=== PATIENT | female | born 1990 | race Caucasian/White ===

== ENCOUNTER 2024-06-25 21:16 | Emergency (ER) | payer OTHER, SELFPAY ==
[2024-06-25 21:17] VITALS: BP 172/127; PULSE 107; RESP 20; TEMP 36.3; O2SAT 100; BMI 44.7
--- NOTE | 2024-06-25 21:30 | CT_ITS ---
PROCEDURE: ABDOMEN/PELVIS WITHOUT CONT 06/25/2024 REASON FOR EXAM: KIDNEY STONE TECHNIQUE: Abdomen and pelvis CT without intravenous contrast. Noncontrast technique limits evaluation of the abdominal and pelvic viscera. Coronal and Sagittal reconstruction series were provided. One or more dose reduction techniques were used (e.g., Automated exposure control, adjustment of the mA and/or kV according to patient size, use of iterative reconstruction technique). COMPARISON: None FINDINGS: Lower chest: Unremarkable. Liver: Hepatic steatosis is present. Biliary/gallbladder: Unremarkable. Pancreas: Unremarkable. Spleen: Unremarkable. Adrenal glands: Unremarkable. Kidneys: Moderate right hydroureteronephrosis with an 8.8 mm calculus at the ureterovesicular junction. Gastrointestinal/peritoneum: No acute abnormality.The appendix is unremarkable.No free air or free fluid. Vascular: Mild scattered atherosclerotic calcifications are present. Lymph nodes: No enlarged lymph nodes by CT size criteria. Pelvic organs: The uterus appears to be scarred to the anterior abdominal wall, likely due to adhesions from prior section. Bladder: Unremarkable. Bones: Unremarkable. Soft tissues: Unremarkable. CT/Abdomen/Pelvis without Cont IMPRESSION: 1. Moderate right obstructive uropathy due to an 8.8 mm calculus at the uretero vesicular junction. 2. Hepatic steatosis. 3. Uterine adhesion likely due to prior section Reading Location: [facility]
[2024-06-25 21:44] LABS: Bacteria 0 SEEN /hpf (None Seen); Mucous, Urine 0 SEEN /hpf (<or=2+); Squamous Epithelial Cells - UA 0 SEEN /hpf (5-10)
--- NOTE | 2024-06-25 21:56 | EX.ED.DYSGE1 ---
HPI History of Present Illness Chief Complaint: Flank Pain Informant: patient Narrative Narrative: Worsening right flank pain radiating to the groin 6 [address] Urine urgency. Denies dysuria denies fevers denies nausea or vomiting. A month ago had similar symptoms went to urgent care negative urine symptoms resolved since then. No diagnosed history of kidney stones. Finished her menstrual period yesterday. Allergies to codeine. No history of gastric ulcers or kidney injury. Prior similar symptoms: Yes PFSH PFSH Medical History (Updated 06/25/24 @ 23:[address] Gary Belcher DO) Preeclampsia Home Medications ?Medication ?Instructions ?Recorded ?Last Taken ?Type hydrocodone-acetaminophen 5-325mg 1 tab PO Q6H PRN PRN Pain 3 days 06/25/24 Unknown Rx 5mg-325mg #12 TABLETS ibuprofen 600 mg tablet 600 mg PO Q6H PRN PRN pain #20 06/25/24 Unknown Rx TABLETS ondansetron 4 mg disintegrating 4 mg PO Q8H PRN PRN Nausea #10 tabs 06/25/24 Unknown Rx tablet Allergy/AdvReac Type Severity Reaction Status Date / Time codeine Allergy Rash Verified 06/25/24 21:20 Social History Smoking Status: Former smoker ROS ROS ED Constitutional Constitutional ED: Denies chills, fever(s) or sweats ENT ENT ED: Denies sore throat Cardiovascular Cardiovascular: Denies chest pain, leg edema, palpitations or racing heartbeat Respiratory/Chest Respiratory/Chest: Denies cough, dyspnea or dyspnea on exertion Gastrointestinal Gastrointestinal: Denies abdominal pain, diarrhea, nausea or vomiting Genitourinary Genitourinary ED: Reports other Details: Urine urgency ; Denies dysuria, hematuria or urinary frequency Musculoskeletal Musculoskeletal: Reports back pain; Denies extremity pain or neck pain Integumentary Denies rash or wounds Neurologic Neurologic: Denies headache(s), paresthesias or weakness EXAM Physical Exam Const Vital Signs: 06/25/24 21:17 06/25/24 23:35 Temperature 97.3 F L Temperature Source Temporal Pulse Rate 107 H 94 Respiratory Rate 20 H 18 Blood Pressure 172/127 H 135/90 H Blood Pressure Mean 142 105 Pulse Ox 100 99 Oxygen Delivery Method Room Air Room Air Positive well nourished and well developed Constitutional Narrative: Uncomfortable, nontoxic General Appearance ED: well developed HEENT Reports moist mucous membranes normocephalic and atraumatic Eyes General Eye ED: Yes normal appearance of both eyes Neck full ROM Chest Wall Chest: Negative for tenderness Resp normal respiratory effort and normal air movement Effort and Inspection: symmetric chest movement; Negative for respiratory distress Cardio regular rate, regular rhythm and no murmurs Peripheral Pulses: pulses 2+ throughout GI normal to inspection, nondistended, normoactive bowel sounds and non-tender Palpation: Negative for guarding or rebound tenderness present Back/Spine no CVA tenderness Back/Spine Narrative: No rash Extremity normal to inspection General Extremety ED: Negative for edema or tenderness General Extremity: Negative for edema Neuro oriented x3 and no sensory deficits noted Sensorium / Orientation: awake and alert Skin no rashes or lesions noted and no wounds MDM MDM MDM Narrative Medical decision making narrative: Interventions / MDM: Differential diagnosis: Renal colic, urolithiasis, hematuria Diagnosis considered but do not suspect: UTI however urine negative for infection My EKG interpretation: N/A Imaging independently reviewed and interpreted by myself: CT abdomen pelvis: Distal right ureteral stone with hydroureter 1 cm. External documents reviewed: N/A Test considered but not ordered:N/A ED course: Uncomfortable flank pain rating to the groin. Renal stone protocol initiated with labs urine. Fluids will start with IV Toradol as she drove here. CT scan abdomen pelvis for further evaluation. 2300: Clinically pain is controlled. Labs stable urine without infection mild hematuria. CT scan reviewed interpreted myself distal ureteral stone up to 1 cm. [place] ureter noted. Awaiting final read. 2330: Final read from radiology 8.8 mm right UVJ stone. Pain remains controlled. Urine strainer from home. Patient states she is from [facility] she leaves tomorrow. Pain controlled at this time no indication requiring hospitalization. Discussed decreased likelihood for passing of this greater than 5 mm. She returned home and tried to find urology for follow-up. Discussed if symptoms not controlled with medications to go to ED for symptom control. Image will be placed on a disk for the patient. Medications for antiemetics and pain medicines of ibuprofen and Kramer for symptom control. All questions were answered. Meds to bed provided. patient picked up Zofran and Kramer. She has ibuprofen at home. Re-evaluation: stable Disposition discussed with patient/family/significant other: Patient Case discussed with consulting clinician: N/A This note was generated with [employer] dictation software. It may contain incorrect words, spelling, and punctuation that were not noted in checking the note before signing. Lab Data Attestation: I reviewed the patient's lab results. Labs: Laboratory Results - last 24 hr 06/25/24 06/25/24 21:39 21:59 WBC 10.8 RBC 4.49 Hgb 13.6 Hct 39.8 MCV 88.6 MCH 30.3 MCHC 34.2 RDW Std Deviation 41.4 RDW Coeff of Gerardo 12.7 Plt Count 384 MPV 9.1 Immature Gran % (Auto) 0.500 Neut % (Auto) 66.3 Lymph % (Auto) 22.9 [place] % (Auto) 7.2 Eos % (Auto) 2.6 Baso % (Auto) 0.5 Absolute Neuts (auto) 7.2 Absolute Lymphs (auto) 2.48 Nucleated RBC % 0 Sodium 140 Potassium 3.8 Chloride 104 Carbon Dioxide 21.4 Anion Gap 15 BUN 12 Creatinine 0.91 Estim Creat Clear Calc 102.39 Est GFR (MDRD) Non-Af 85 BUN/Creatinine Ratio 13.6 Glucose 120 H Calcium 9.4 Serum , Qual NEGATIVE Urine Color Yellow Urine Clarity Clear Urine pH 6.0 Ur Specific [place] 1.025 Urine Protein 100 H Urine Glucose (UA) Normal Urine Ketones Negative Urine Occult Blood 10 H Urine Nitrite Negative Urine Bilirubin Negative Urine Urobilinogen 1 H Ur Leukocyte Esterase Negative Urine RBC 0-5 SEEN Urine WBC 0-5 SEEN Ur Squamous Epith Cells 0 SEEN Calcium Oxalate Crystal 2+ Urine Bacteria 0 SEEN Urine Mucus 0 SEEN Radiography Diagnostic Testing: Clinical Impression(s) from Imaging Studies Abdomen/Pelvis CT 06/25/24 21:30 IMPRESSION: 1. Moderate right obstructive uropathy due to an 8.8 mm calculus at the ureterovesicular junction. 2. Hepatic steatosis. 3. Uterine adhesion likely due to prior section [facility] T[facility] Chief Complaint: Flank Pain ED Provider: Gary Belcher Dx/Rx/DC Orders Clinical Impression: Kidney stone on right side, Renal colic on right side Instructions: ED Kidney Stone with Pain Prescriptions: New hydrocodone-acetaminophen 5-325 mg tablet 1 tab PO Q6H PRN PRN (Reason: Pain) 3 Days Qty: 12 0RF ibuprofen 600 mg tablet 600 mg PO Q6H PRN PRN (Reason: pain) Qty: 20 0RF ondansetron 4 mg tablet,disintegrating 4 mg PO Q8H PRN PRN (Reason: Nausea) Qty: 10 0RF Primary Care Provider: Care Physician,No Primary Referrals: Care Physician,No Primary [Primary Care Provider] - Activity Restrictions/Additional Instructions: 8.8 mm stone right UVJ. Urine without infection. Take medications as prescribed. Image placed on disc. Follow-up with urology back home. Print Language: [place] Disposition Disposition: Home, Self Care
[2024-06-25] MEDS: 0.9% Normal Saline (500mL Bag) 500 ML 999 ML IV (21:59)
[2024-06-25] MEDS: Ketorolac 15 MG/ML Vial IV (21:59)
[2024-06-25 22:07] LABS: Color, Urine Yellow (Yellow); Glucose, Dipstick Normal (Normal); Ketone-Dipstick Negative (Negative); Leukocyte Esterase-Dipstick Negative /ul (Negative); Nitrite-Dipstick Negative (Negative); Occult Blood-Urine 10 /ul (Negative); Protein-Dipstick 100 mg/dl (Negative); Specific Gravity, Urine 1.025 (1.002-1.030); Urine Bilirubin Dipstick Negative (Negative); Urine Clarity Clear (Clear); Urine Urobilinogen 1 mg/dl (Normal)
[2024-06-25 22:17] LABS: Absolute Lymphocyte Count 2.48 X10^3/uL (0.83-4.51); Absolute Neutrophil Count 7.2 X10^3/uL (2.0-7.7); Basophil# 0.05 X10^3/uL; Basophil% 0.5 % (0-1); Eosinophil# 0.28 X10^3/uL; Eosinophils% 2.6 % (0-5); Hematocrit 39.8 % (37-47); Hemoglobin 13.6 g/dL (12.0-15.0); Lymphocyte # 2.48 X10^3/ul (0.83-4.51); Lymphocyte % 22.9 % (19-41); Mean Corp Hgb Conc 34.2 g/dL (32-36); Mean Corpuscular Hgb 30.3 pg (27.0-32.0); Mean Corpuscular Volume 88.6 fL (81-99); Mean Platelet Vol. 9.1 fl (6.2-12.0); Monocyte# 0.78 X10^3/uL; Monocyte% 7.2 % (0-10); NRBC Flagged by Analyzer 0 % (0-5); Neutrophil # 7.17 X10^3/uL (2.7-7.7); Neutrophil % 66.3 % (47-70); Platelet Count 384 K/mm3 (150-450); RBC Distribution Width CV 12.7 % (11.6-14.6); RBC Distribution Width SD 41.4 fl (35.1-43.9); Red Blood Count 4.49 M/mm3 (4.2-5.4); White Blood Count 10.8 K/mm3 (4.4-11.0)
[2024-06-25 22:28] LABS: Internal QC Validated? YES +Cl - CLEAR BKGD; Pregnancy, Serum, hCG Quali. NEGATIVE Negative
[2024-06-25 22:29] LABS: Calcium Oxalate Crystals Ur 2+ /hpf (<or=2+); Red Blood Cells-Urine 0-5 SEEN /hpf (0-5); White Blood Cells 0-5 SEEN /hpf (0-5)
[2024-06-25 22:47] LABS: Anion Gap 15 (5-15); BUN 12 mg/dL (4-19); BUN/Creat Ratio 13.6 RATIO (10-20); Calcium,Total 9.4 mg/dL (7.6-11.0); Carbon Dioxide 21.4 mmol/L (21.0-32.0); Chloride 104 mmol/L (98-108); Creatinine, Serum 0.91 mg/dL (0.70-1.20); EST Glomerular Filtration Rate 85 (>60); Estimated Creatinine Clearance 102.39 ml/min (50-250); Glucose 120 mg/dL (70-99); Potassium 3.8 mmol/L (3.3-5.1); Sodium Level 140 mmol/L (133-145)
[2024-06-25 23:35] VITALS: BP 135/90; PULSE 94; RESP 18; O2SAT 99
== END 2024-06-26 | disposition home or self-care (01) ==
PROVIDERS: Emergency Provider Emergency Medicine; Visit Provider Emergency Medicine
DX: N13.2 Hydronephrosis with renal and ureteral calculous obstruction (principal); Z87.891 Personal history of nicotine dependence
CPT/HCPCS: 74176; 80048; 81001; 84703; 85025; 96361; 96374; 99283; A4216